=== PATIENT | female | born 1955 | race African-American/Black ===

== ENCOUNTER 2019-04-16 21:37 | Emergency (ER) | payer MEDICAID ==
[~2019-04-16] VITALS: Ht 167.6 cm; Wt 82.0 kg
[2019-04-16] MEDS ORDERED: IPRATROPIUM BROMIDE (0.02%) 0.5MG/2.5ML NEB HHN STA (23:50)
[2019-04-16] MEDS ORDERED: PREDNISONE 20MG TABLET PO STA (23:50)
[2019-04-16] MEDS ORDERED: ALBUTEROL (0.083%) 2.5MG/3ML NEB HHN STA (23:50)
[2019-04-17 00:32] LABS: BASOPHILS % 0.4 % (0.0-2.0); EOSINOPHILS % 2.4 % (0.0-5.0); HEMATOCRIT. 28.2 % (36.0-48.0); HEMOGLOBIN. 9.3 g/dL (12.0-16.0); LYMPHOCYTES % 14.2 % (20.0-50.0); MEAN CORPUSCULAR HEMOGLOBIN 25.9 pg (28.0-32.0); MEAN CORPUSCULAR VOLUME 78.5 fL (81.0-99.0); MEAN PLATELET VOLUME 7.6 fl (7.4-10.4); MONOCYTES % 6.8 % (2.0-8.0); NEUTROPHILS % 76.2 % (40.0-76.0); PLATELET 259 x1000/uL (130-400); RED CELL DISTRIBUTION WIDTH 18.3 % (11.6-14.6)
[2019-04-17 00:40] LABS: CHLORIDE 107 mEq/L (98-107)
[2019-04-17] MEDS ORDERED: ALBUTEROL (0.083%) 2.5MG/3ML NEB HHN STA (01:10)
[2019-04-17] MEDS ORDERED: IPRATROPIUM BROMIDE (0.02%) 0.5MG/2.5ML NEB HHN STA (01:10)
[2019-04-17 02:30] VITALS: BP 147/76
== END 2019-04-17 02:30 | disposition left against medical advice (07) ==
LOC: ER 21:37 → EDBEDREQTM 04-17 02:16 → EDBEDREQ 04-17 02:16 → ER 04-17 02:30 → ENRESERV 04-17 05:27 → CANRESERV 04-17 05:27 → CANBEDREQ 04-17 05:53
DX: J44.1 Chronic obstructive pulmonary disease with (acute) exacerbation (principal); F17.210 Nicotine dependence, cigarettes, uncomplicated; Z71.6 Tobacco abuse counseling
CPT/HCPCS: 36415; 71045; 80053; 83880; 84484; 85025; 93005; 94640; 99284; 99406; J7512; J7611; Z7610